=== PATIENT | female | born 1950 | race Caucasian/White ===

== ENCOUNTER 2023-05-16 11:47 | Emergency (ER) | payer OTHER ==
[~2023-05-16] VITALS: Ht 167.6 cm; Wt 65.8 kg
[2023-05-16] MEDS ORDERED: PLAVIX75 MG PO (12:03)
[2023-05-16] MEDS ORDERED: COZAAR100 MG PO (12:04)
[2023-05-16] MEDS ORDERED: CRESTOR40 MG PO (12:04)
[2023-05-16] MEDS ORDERED: CHILDREN'S ASPI81 MG PO (12:04)
[2023-05-16] MEDS ORDERED: LASIX20 MG PO (12:04)
[2023-05-16] MEDS ORDERED: NORVASC10 MG PO (12:05)
[2023-05-16] MEDS ORDERED: MOBIC7.5 MG PO (14:05)
== END 2023-05-16 14:37 | disposition home or self-care (01) ==
LOC: ER 11:47
DX: S73.191A Other sprain of right hip, initial encounter (principal); S76.811A Strain of other specified muscles, fascia and tendons at thigh level, right thigh, initial encounter; W19.XXXA Unspecified fall, initial encounter; Y93.89 Activity, other specified; Y92.098 Other place in other non-institutional residence as the place of occurrence of the external cause; Y99.8 Other external cause status; M79.651 Pain in right thigh; I10 Essential (primary) hypertension; E11.9 Type 2 diabetes mellitus without complications